=== PATIENT | male | born 1990 | race Caucasian/White ===

== ENCOUNTER 2016-12-14 01:29 | Emergency (ER) | payer OTHER ==
[2016-12-14 02:09] VITALS: BP 157/76; PULSE 108; TEMP 98.7; BMI 28.0
[2016-12-14] MEDS ORDERED: IBUPROFEN 400 MG TABLET (FP) PO ONE ×2 (02:21→03:14)
[2016-12-14] MEDS ORDERED: METHOCARBAMOL 500 MG TABLET PO ONE (02:21)
--- NOTE | 2016-12-14 02:21 | PDOC ---
History of Present Illness - General History Source: Patient <Evangelist Elizalde - Last Filed: 12/14/16 03:07> - General History Source: Patient Exam Limitations: No Limitations - History of Present Illness Initial Comments: 12/14/16 02:22 The patient is a 26 year old male, with no significant past medical history, who presents to the emergency s/p lifting patient approximately 2 hours ago and experiencing left leg and lower back pain. The patient reports the pain in his lower back radiates down his left leg. He reports associated numbness and tingling in his left leg. Patient reports similar episodes of back and leg pain in the past, which have resulted in discomfort at baseline, but not as bad as his pain today. Patient reports his back and leg pain are mildly alleviated when at rest or laying down. He denies any trauma to the back or leg. He denies any dysuria, hematuria, frequency, or urgency. He denies any abdominal pain, nausea, vomiting, diarrhea, or constipation. He denies any fever, chills, headache, or dizziness. He denies any recent travel or sick contacts. Allergies: NKDA Past Surgical History: None reported. Social History: EMS employee. Non smoker. No ETOH or recreational drug use. <Jennifer Mcdermott - Last Filed: 12/14/16 05:17> - General Chief Complaint: Pain, Acute Stated Complaint: PAIN,LT LEG Time Seen by Provider: 12/14/16 02:04 Past History - Past Medical History Other medical history: Denies - Immunization History Immunization Up to Date: No - Suicide/Smoking/Psychosocial Hx Smoking History: Never smoked Have you smoked in the past 12 months: No Information on smoking cessation initiated: No Hx Alcohol Use: No Drug/Substance Use Hx: No Substance Use Type: None <FideEvangelist - Last Filed: 12/14/16 03:07> <Jennifer Mcdermott - Last Filed: 12/14/16 05:17> - Past Medical History Allergies/Adverse Reactions: Allergies Allergy/AdvReac Type Severity Reaction Status Date / Time No Known Allergies Allergy Verified 12/14/16 02:09 Home Medications: Ambulatory Orders Ibuprofen 800 mg PO TID #30 tablet 12/14/16 Methocarbamol [Robaxin -] 1,000 mg PO BID #60 tablet 12/14/16 Review of Systems - Review of Systems Able to Perform ROS?: Yes Comments:: 12/14/16 02:22 CONSTITUTIONAL: Absent: fever, no chills, no fatigue EYES: Absent: visual changes ENT: Absent: ear pain, no sore throat CARDIOVASCULAR: Absent: chest pain, no palpitations RESPIRATORY: Absent: cough, no SOB GI: Absent: abdominal pain, no nausea, no vomiting, no constipation, no diarrhea GENITOURINARY: Absent: dysuria, no frequency, no hematuria MUSCULOSKELETAL: Present: back pain radiating down left leg Absent: no arthralgia, no myalgia SKIN: Absent: rash NEURO: Present: left leg numbness and tingling Absent: headache <Jennifer Mcdermott - Last Filed: 12/14/16 05:17> *Physical Exam - Vital Signs Last Vital Signs Temp Pulse Resp BP Pulse Ox 98.7 F 108 H 20 157/76 97 12/14/16 02:05 12/14/16 02:05 12/14/16 02:05 12/14/16 02:05 12/14/16 02:05 <Evangelist Elizalde - Last Filed: 12/14/16 03:07> - Vital Signs Last Vital Signs Temp Pulse Resp BP Pulse Ox 98.7 F 108 H 20 157/76 97 12/14/16 02:05 12/14/16 02:05 12/14/16 02:05 12/14/16 02:05 12/14/16 02:05 - Physical Exam Comments: 12/14/16 02:22 GENERAL: Well-appearing, well-nourished. No apparent distress. HEENT: Normocephalic, atraumatic. PERRL, EOM intact. CARDIOVASCULAR: Normal S1, S2. Regular rate and rhythm. PULMONARY: Clear to auscultation bilaterally. ABDOMEN: Soft, non-distended, non-tender. EXTREMITIES: Normal ROM in all four extremities. No gross deformities. SKIN: Warm, dry. No rash NEUROLOGICAL: No focal neurological deficits. No motor or sensory deficits in the bilateral lower extremities. Positive straight leg raise on the left. No trauma or ecchymosis. <Jennifer Mcdermott - Last Filed: 12/14/16 05:17> ED Treatment Course - RADIOLOGY Radiograph Interpretation: 12/14/16 02:59 EXAM: CT Lumbar Spine INTERPRETED BY: Dr. Simpson REVIEWED BY: Dr. Elizalde FINDINGS:There is no vertebral body fracture. There is intervertebral disc space narrowing at L5-S1 with a left posterior paracentral disc herniation. Herniated disc extends posteriorly by 1.2 cm into the spinal canal with posterior displacement of the left S1 nerve root IMPRESSION: Left paracentral disc herniation at L5-S1 <Jennifer Mcdermott - Last Filed: 12/14/16 05:17> *DC/Admit/Observation/Transfer - Discharge Dispostion Admit: No <Evangelist Elizalde - Last Filed: 12/14/16 03:07> - Attestations Scribe Attestion: 12/14/16 02:23 Documentation prepared by Jennifer Mcdermott, acting as medical equipment technician for Evangelist Elizalde DO. <Jennifer Mcdermott - Last Filed: 12/14/16 05:17> Diagnosis at time of Disposition: Disc herniation Qualifiers: Spinal region: lumbosacral Qualified Code(s): M51.27 - Other intervertebral disc displacement, lumbosacral region - Discharge Dispostion Disposition: HOME Condition at time of disposition: Fair - Prescriptions Prescriptions: Ibuprofen 800 mg PO TID #30 tablet Methocarbamol [Robaxin -] 1,000 mg PO BID #60 tablet - Referrals Referrals: Ronaldo Cline MD [Staff Physician] - - Patient Instructions Printed Discharge Instructions: DI for Herniated Disc - Post Discharge Activity Forms/Work/School Notes: Back to Work
[2016-12-14] MEDS ORDERED: METHOCARBAMOL 500 MG TABLET ONE (03:14)
== END 2016-12-14 03:28 | disposition home or self-care (01) ==
LOC: JER 01:29
DX: M51.27 Other intervertebral disc displacement, lumbosacral region (principal)
CPT/HCPCS: 72131-TC; 99281-25